=== PATIENT | male | born 1955 | race Caucasian/White ===

== ENCOUNTER 2023-01-01 11:46 | Outpatient (REF) | payer MEDICARE, OTHER, SELFPAY ==
--- NOTE | ~2023-01-01 | XR_ITS ---
EXAMINATION: XR SACROILIAC JOINTS CLINICAL INFORMATION: Back pain COMPARISON: None available. TECHNIQUE: 3 views of the sacroiliac joints FINDINGS: Hip and sacroiliac joint spaces are maintained. No acute fracture or dislocation. Soft tissues are unremarkable. XR/XR sacroiliac joint min 3V IMPRESSION: Unremarkable sacroiliac joints.
== END 2023-01-01 11:47 | disposition home or self-care (01) ==
LOC: HO.XRAY 11:46
PROVIDERS: PCP Internal Medicine; Visit Provider Student in an Organized Health Care Education/Training Program
DX: M54.41 Lumbago with sciatica, right side (principal)
CPT/HCPCS: 72202